=== PATIENT | female | born 1985 | race Caucasian/White ===

== ENCOUNTER 2024-12-03 14:00 | Outpatient (RCR) | payer OTHER, SELFPAY ==
--- NOTE | 2024-11-06 09:59 | OPREHPOC ---
Outpatient Therapy Plan of Care This is a Multidisciplinary Plan of Care that may contain components documented by all disciplines (PT, OT, and ST.) PT Problem 1 PT Problem #1 Knowledge Deficit PT Goal 1 Goal / Goal Update 1. Pt to be IND with issued HEP Target Visit 10 PT Problem 2 PT Problem #2 Pain PT Goal 1 Goal / Goal Update 1. Pt to report shoulder pain no greater than 3/10 in the last week. 2. Pt to return to 40 hour work week, without a need to take pain medication. PT Problem 3 PT Problem #3 Impaired Strength PT Goal 1 Goal / Goal Update 1. Pt to demonstrate good scapular stabilization with resistance.
--- NOTE | 2024-11-06 10:00 | PTOPEVAL1 ---
Assessment and note entered by Mitra Lawrence, PT, DPT Evaluation Information Assessment Status Evaluation Diagnosis cervical disc replacement Onset 10/20 Subjective Information Pt states she had a cervical C5/C6 disc replacement on 10/20. She reports a history of cervical radiculopathy prior to the surgery. Before surgery she was unable to turn her head to look over her shoulder, R sided cervical radiculopathy. Imaging showed spinal order impingement. States her neck pain and radicular pain has improved since surgery, states reports achy pain in the next with additional pain in the posterior side of her R shoulder. Reported Pain Level Pain Score 3,0: Self Report Assessment PT Clinical Summary Pt presents to therapy today for her initial evaluation following a C5/C6 disc replacement. Today she demonstrates active ROM that is slightly decreased from normal values. She also has decreased shoulder ROM and demonstrates scapular winging with resistance. There is also decreased thoracic mobility with active motion. Skilled therapy services are indicated to address the deficits noted above, to manage shoulder pain, and to return to PLOF. Plan of Care Interventions Electrical Stimulation,Hot Pack/Cold Pack,Manual Therapy,Neuro Re-education,Patient/Caregiver Education,Therapeutic Activities,Therapeutic Exercise PT Services Indicated Yes Treatment Frequency and 2x/wk for 10 visits Duration These treatments will address the objective and functional deficits as defined above. The patient will be advanced safely and appropriately in order for the patient to progress towards his/her prior level of function. Additional exercises will be introduced and as well as a comprehensive home exercise program upon discharge, if needed, ?to ensure carryover of functional gains achieved in the clinic. This treatment plan has been reviewed and agreement upon by the patient.
--- NOTE | 2024-11-10 09:53 | PCPTNOTE ---
Patient called & cancelled scheduled appointment this date due to having another appointment at this time.
--- NOTE | 2024-11-21 09:09 | PCPTNOTE ---
Patient was canceled this date due to therapist being out with illness.
--- NOTE | 2024-12-05 14:01 | PCPTNOTE ---
Patient canceled therapy this date.
--- NOTE | 2024-12-09 14:23 | PCPTNOTE ---
Patient did not show up for scheduled appointment this date, today is her last scheduled appointment. Called and LVM with follow up instructions.
--- NOTE | 2024-12-30 08:26 | PTOPDC ---
Assessment and note entered by Mitra Lawrence, PT, DPT Evaluation Information Assessment Status Discharge - Pt Not Present Diagnosis cervical disc replacement Onset 10/20 Subjective Information Pt did not show up so last scheduled appointment on 12/10/24. Called and LVM at that time with follow up instructions and have not heard from pt since. Assessment PT Clinical Summary Pt completed 5 visits of skilled therapy. She will be discharged at this time d/t lack of communication with the clinic.
== END 2024-12-30 09:34 | disposition home or self-care (01) ==
LOC: ANHGOSHPT 14:00
DX: Z48.89 Encounter for other specified surgical aftercare (principal); Z98.890 Other specified postprocedural states
CPT/HCPCS: 97110; 97161